=== PATIENT | female | born 1995 | race Caucasian/White ===

== ENCOUNTER 2018-04-24 11:34 | Emergency (ER) | payer MEDICAID, OTHER | END 2018-04-24 12:50 | disposition home or self-care (01) | LOC: FTE 11:34 | DX: R21 Rash and other nonspecific skin eruption (principal) | CPT/HCPCS: 99283; Z7502 ==

== ENCOUNTER 2018-09-16 12:56 | Emergency (ER) | payer SELFPAY, MEDICAID ==
[2018-09-16] MEDS: DIPHTH/TET/ACEL PERTUSS (ADULT) 0.5 ML VIAL IM* (15:17)
== END 2018-09-16 15:38 | disposition home or self-care (01) ==
LOC: FTE 12:56
DX: S61.213A Laceration without foreign body of left middle finger without damage to nail, initial encounter (principal); W26.0XXA Contact with knife, initial encounter; Y92.9 Unspecified place or not applicable; Z23 Encounter for immunization
CPT/HCPCS: 90471; 90715; 99283-25